=== PATIENT | male | born 1965 | race American Indian/Alaskan Native ===

== ENCOUNTER 2017-06-21 20:49 | Emergency (ER) | payer OTHER ==
[2017-06-21 20:54] VITALS: BP 125/79; PULSE 82; RESP 16; TEMP 98; O2SAT 99
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
== END 2017-06-21 22:50 | disposition home or self-care (01) ==
LOC: H.ER 20:49
DX: S16.1XXA Strain of muscle, fascia and tendon at neck level, initial encounter (principal); M25.511 Pain in right shoulder; V43.52XA Car driver injured in collision with other type car in traffic accident, initial encounter; Y92.410 Unspecified street and highway as the place of occurrence of the external cause